=== PATIENT | male | born 1940 | race Caucasian/White ===

== ENCOUNTER 2018-04-07 22:09 | Inpatient (IN) | payer MEDICARE ==
[~2018-04-07] VITALS: Ht 177.8 cm; Wt 74.8 kg
[2018-04-07 23:15] VITALS: BP 153/96
[2018-04-08] MEDS ORDERED: MAG HYDROX/AL HYDROX/SIMETH 30 ML UDC PO PRN
[2018-04-08] MEDS ORDERED: ACETAMINOPHEN 325 MG TABLET PO PRN
[2018-04-08] MEDS ORDERED: MAGNESIUM HYDROXIDE 30 ML UDC PO PRN
[2018-04-08] MEDS ORDERED: DIPH25TA27 PO (00:04)
[2018-04-08] MEDS ORDERED: NICOTINE PATCH (14MG) 14 MG PATCH.TD24 TD SCH (09:00)
[2018-04-08 10:13] LABS: BASOPHILS % (AUTO) 0.4 % (0.0-2.0); EOSINOPHILS % (AUTO) 1.8 % (0.0-6.0); HEMATOCRIT 26 % (39-51); HEMOGLOBIN 8.6 g/dL (13.5-17.5); LYMPHOCYTES # (AUTO) 0.6 /CMM (0.8-4.8); LYMPHOCYTES % (AUTO) 8.8 % (20.0-44.0); MEAN CORPUSCULAR HGB CONC 33 g/dl (31.0-36.0); MEAN CORPUSCULAR VOLUME 91 fL (80-96); MONOCYTES # (AUTO) 0.4 /CMM (0.1-1.30); MONOCYTES % (AUTO) 6.3 % (2.0-12.0); NEUTROPHILS # (AUTO) 5.2 /CMM (1.8-8.9); NEUTROPHILS % (AUTO) 82.7 % (43.0-81.0); PLATELET COUNT (AUTO) 257 /CMM (150-450); RED BLOOD CELL COUNT(AUTO) 2.88 MIL/uL (4.5-6.0); WHITE BLOOD COUNT (AUTO) 6.3 K/uL (4.3-11.0)
[2018-04-08 10:26] LABS: ALANINE AMINOTRANSFERASE 14 U/L (12-78); ALBUMIN 2.4 g/dL (3.4-5.0); ALKALINE PHOSPHATASE 64 U/L (46-116); ASPARTATE AMINOTRANSFERASE 22 U/L (15-37); BILIRUBIN,TOTAL 0.2 mg/dL (0.2-1.0); CALCIUM, SERUM 7.6 mg/dL (8.5-10.1); CARBON DIOXIDE 28 mmol/L (21-32); CHLORIDE 105 mmol/L (98-107); GLUCOSE 80 mg/dL (74-106); POTASSIUM 3.9 mmol/L (3.5-5.1); SODIUM SERUM 140 mmol/L (136-145); TOTAL PROTEIN, SERUM 5.5 g/dL (6.4-8.2); UREA NITROGEN, BLOOD 23 mg/dL (7-18)
[2018-04-08 10:28] LABS: CHOLESTEROL 171 mg/dL (<200); HDL CHOLESTEROL 64 mg/dL (40-60); LDL 104 mg/dL (0-99); TRIGLYCERIDES 57 mg/dL (30-150)
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
--- NOTE | 2018-04-08 13:25 | NUR ---
INITIAL DISCHARGE PLAN: Patient needs placement. SW will help form a safe and proper discharge in collaboration with MD.
[2018-04-08 16:00] VITALS: BP 129/87
--- NOTE | 2018-04-08 16:10 | NUR ---
SLADE received a phone call from MARVA Culp social work assistant [phone] requesting discharge information for pt. SLADE informed him that pt will be discharged to a SNF once stable for discharge.
[2018-04-08] MEDS: QUETIAPINE FUMARATE 25 MG TABLET PO SCH (16:44)
[2018-04-08 20:00] VITALS: BP 130/64
[2018-04-08] MEDS: MIRTAZAPINE 15 MG TABLET PO SCH (21:21)
[2018-04-08] MEDS: diphenhydrAMINE HCL 25 MG CAPSULE PO PRN (21:22)
[2018-04-09 06:48] LABS: APPEARANCE,URINE CLEAR (CLEAR); BILIRUBIN,URINE NEGATIVE (NEGATIVE); BLOOD, URINE NEGATIVE Ery/uL (NEGATIVE); COLOR,URINE YELLOW (YELLOW); KETONES,URINE TRACE (NEGATIVE); LEUKOCYTE ESTERASE ,URINE NEGATIVE (NEGATIVE); NITRITE, URINE NEGATIVE (NEGATIVE); PH,URINE 6.5 (5.0-8.0); PROTEIN,URINE TRACE mg/dl (NEGATIVE); UGLUCOSE NEGATIVE (NEGATIVE); UROBILINOGEN,URINE 0.2 EU/dL (0.2)
[2018-04-09 08:00] VITALS: BP 111/58
[2018-04-09 08:02] LABS: BACTERIA,URINE Rare /HPF (None Seen); RBC,URINE 0-2 /HPF (0-2); SQUAMOUS EPITHELIAL CELL,UR Rare /HPF (None Seen); WBC,URINE NONE SEEN /HPF (0-3)
[2018-04-09] MEDS: NICOTINE PATCH (7MG) 7 MG PATCH.TD24 TD SCH (08:30)
[2018-04-09] MEDS: QUETIAPINE FUMARATE 25 MG TABLET PO SCH ×2 (08:30→16:38)
[2018-04-09 16:00] VITALS: BP 116/67
[2018-04-09 20:00] VITALS: BP 109/51
[2018-04-09] MEDS: MIRTAZAPINE 15 MG TABLET PO SCH (22:11)
[2018-04-09] MEDS: diphenhydrAMINE HCL 25 MG CAPSULE PO PRN (22:15)
--- NOTE | 2018-04-09 22:39 | NUR ---
LATE ENTRY: DATE OF ADMISSION: 04/07/2018 AT 2315 PATIENT ADMITTED DIRECTLY FORM [facility] ON 5150 HOLD FOR GD. PATIENT ADMITTED DUE TO INCREASING CONFUSION, DEPRESSION AND UNABLE TO CARE FOR HIMSELF. HE WAS EVICTED FROM [place] DUE TO SMOKING. PATIENT WAS PLACED IN BED COMFORTABLY. PATIENT IS AWAKE, ALERT, ORIENTED X2, (NAME AND TIME). PATIENT SHOWS NO S/S OF ANY PAIN. RESPIRATION EVEN, BREATHING PATTERN NON-LABORED, NO APPARENT DISTRESS NOTED. SKIN IS DRY AND CLEAR, SCAB NOTED ON THE LEFT KNEE, PHOTO TAKEN. PATIENT IS AMBULATORY, STEADY GAIT. COOPERATIVE AND UNCOOPERATIVE, CONFUSED, INTERACTS WHEN ENGAGED, REFUSED TO SHOWER, UNKEMPT, DISHEVELED, MALODOROUS, POOR HYGIENE, NO RELATIVE GIVEN. NO KNOWN ALLERGY. BELONGINGS WERE INVENTORIED AND CHECKED FOR CONTRABAND. MED RECON DONE. BED LOCKED AND PLACED ON LOW POSITION FOR SAFETY. WILL CONTINUE TO MONITOR Q 15 MINS. FOR SAFETY.
[2018-04-10 07:11] LABS: BASOPHILS % (AUTO) 0.9 % (0.0-2.0); EOSINOPHILS % (AUTO) 3.9 % (0.0-6.0); HEMATOCRIT 25 % (39-51); HEMOGLOBIN 8.3 g/dL (13.5-17.5); LYMPHOCYTES # (AUTO) 1.1 /CMM (0.8-4.8); MEAN CORPUSCULAR HGB CONC 34 g/dl (31.0-36.0); MEAN CORPUSCULAR VOLUME 90 fL (80-96); MONOCYTES # (AUTO) 0.6 /CMM (0.1-1.30); MONOCYTES % (AUTO) 10.6 % (2.0-12.0); NEUTROPHILS # (AUTO) 3.6 /CMM (1.8-8.9); NEUTROPHILS % (AUTO) 64.6 % (43.0-81.0); PLATELET COUNT (AUTO) 232 /CMM (150-450); RED BLOOD CELL COUNT(AUTO) 2.73 MIL/uL (4.5-6.0); WHITE BLOOD COUNT (AUTO) 5.5 K/uL (4.3-11.0)
[2018-04-10 07:42] LABS: IRON, SERUM 22 ug/dl (50-175); TOTAL IRON BINDING CAPACITY 209 ug/dl (250-450)
[2018-04-10 08:00] VITALS: BP 115/69
[2018-04-10] MEDS: QUETIAPINE FUMARATE 25 MG TABLET PO SCH ×2 (08:29→17:05)
[2018-04-10] MEDS: NICOTINE PATCH (7MG) 7 MG PATCH.TD24 TD SCH (10:05)
[2018-04-10 16:00] VITALS: BP 115/58
[2018-04-10 20:00] VITALS: BP 122/80
[2018-04-10] MEDS: MIRTAZAPINE 15 MG TABLET PO SCH (21:11)
[2018-04-11 08:00] VITALS: BP 124/67
[2018-04-11] MEDS: NICOTINE PATCH (7MG) 7 MG PATCH.TD24 TD SCH (09:02)
[2018-04-11] MEDS: QUETIAPINE FUMARATE 25 MG TABLET PO SCH ×2 (09:02→16:24)
--- NOTE | 2018-04-11 11:54 | NUR ---
DR. RUSSO MADE AWARE OF THE RESULT OF THE CHEST X-RAY.
[2018-04-11] MEDS: FERROUS SULFATE (325 MG) 325 MG/TAB TABLET PO SCH ×2 (12:06→16:24)
--- NOTE | 2018-04-11 13:06 | NUR ---
SW met with MARVA Culp [employer] social worker [phone] and discussed pts discharge plan.
[2018-04-11] MEDS ORDERED: ALBUTEROL FS 2.5 MG/0.5 ML VIAL.NEB NEB PRN (13:30)
--- NOTE | 2018-04-11 14:27 | NUR ---
SLADE faxed SNF referral to CJ, facility coordinator at [facility] Address: [address] [place] [address] for review.
--- NOTE | 2018-04-11 15:41 | NUR ---
SW received a call from PERLITA, laboratory operations coordinator at [facility] Address: [address] [place] [address] stating pt has been accepted to their facility.
[2018-04-11 16:00] VITALS: BP 122/74
--- NOTE | 2018-04-11 17:43 | NUR ---
Pt. transferred to [facility] and and report given to
--- NOTE | 2018-04-11 17:51 | NUR ---
GPS/OF. PT RECEIVED A&0x2, CHATTING, CONFUSED BUT RESPONSIVE TO REDIRECTION. PT WITH 1:1. PT MADE COMFORTABLE. MATCHES CONFISCATED FROM PT. WILL CONTINUE POC.
--- NOTE | 2018-04-11 18:29 | NUR ---
GPS OVF. PT RESTING IN BED AFTER DINNER. PT PLEASANT, CONFUSED, MALODOROUS AND WANDERING BUT RESPONSIVE TO REDIRECTION AND RULE SETTING. PT TOLERATING ROOM AIR AND DENIES PAIN AT THIS TIME. PT WITH 1:1 FOR SAFETY. PT BED IN LOWEST LOCKED POSITION WITH HANDRIALSX2 AND CALL VAZQUEZ WITHIN REACH. WILL ENDORSE TO NIGHT NURSE AT BEDSIDE FOR LARISA.
--- NOTE | 2018-04-11 19:40 | NUR ---
GPS OVERFLOW RN NOTE: PATIENT RESTING IN BED, NO ACUTE DISTRESS NOTED. BREATHING EVEN AND UNLABORED, NO SOB NOTED. SITTER AT BEDSIDE. PATIENT CALM AND COOPERATIVE AT THIS TIME. BED LOCKED AND IN LOWEST POSITION, CALL LIGHT IN REACH. WILL CONTINUE TO MONITOR.
[2018-04-11 20:00] VITALS: BP 131/63
[2018-04-11 20:35] VITALS: BP 131/63
[2018-04-11] MEDS: MIRTAZAPINE 15 MG TABLET PO SCH (21:39)
[2018-04-11] MEDS: clonazePAM 0.5 MG TABLET PO PRN (21:39)
--- NOTE | 2018-04-11 21:45 | NUR ---
GPS OVERFLOW RN NOTE: PATIENT MOVED TO ROOM 206-2, WITH ALL BELONGINGS, SITTER AT BEDSIDE. BED LOCKED AND IN LOWEST POSITION, CALL LIGHT IN REACH. WILL CONTINUE TO MONITOR.
[2018-04-11] MEDS: TEMAZEPAM 7.5 MG CAPSULE PO PRN (22:22)
--- NOTE | 2018-04-12 06:25 | NUR ---
GPS OVERFLOW RN NOTE: PATIENT RESTING IN BED, NO ACUTE DISTRESS NOTED. BREATHING EVEN AND UNLABORED, NO SOB NOTED. SITTER AT BEDSIDE. PATIENT CALM AND COOPERATIVE AT THIS TIME. BED LOCKED AND IN LOWEST POSITION, CALL LIGHT IN REACH. WILL ENDORSE TO DAY NURSE TO CONTINUE WITH PLAN OF CARE.
[2018-04-12] MEDS: clonazePAM 0.5 MG TABLET PO PRN (07:34)
--- NOTE | 2018-04-12 08:00 | NUR ---
MS RN NOTES PATIENT IN BED RESTING NO SOB OR ACUTE DISTRESS NOTED. PATIENT ALERT, ORIENTED X1 CONFUSED. PATIENT GPS OVERFLOW WITH SITTER. BED IN LOW LOCKED POSITION. CALL LIGHT WITHIN REACH . WILL CONTINUE TO MONITOR.
[2018-04-12] MEDS: NICOTINE PATCH (7MG) 7 MG PATCH.TD24 TD SCH (08:54)
[2018-04-12] MEDS: QUETIAPINE FUMARATE 25 MG TABLET PO SCH ×2 (08:55→16:21)
[2018-04-12] MEDS: FERROUS SULFATE (325 MG) 325 MG/TAB TABLET PO SCH ×2 (08:55→16:21)
[2018-04-12 08:58] VITALS: BP 130/69
[2018-04-12] MEDS: CYANOCOBALAMIN 1,000 MCG/ML VIAL IM SCH (10:00)
--- NOTE | 2018-04-12 18:31 | NUR ---
MS RN NOTES PATIENT IN BED RESTING ALL DUE MEDICATIONS ADMINISTERED. ALL NEEDS MET WILL ENDORSE CARE TO PM SHIFT.
--- NOTE | 2018-04-12 19:30 | NUR ---
MS/RN OPENING NOTES PT RESTING COMFORTABLY IN BED. CONFUSED. ON ROOM AIR, BREATHING EVEN AND UNLABORED. DENIES PAIN. NO S/S OF SOB OR ACUTE DISTRESS. NO IV ACCESS PER HOSPITAL PROTOCOL. SITTER AT BEDSIDE. BED IN LOW/LOCKED POSITION WITH CALL LIGHT IN REACH, BILATERAL SIDE RAILS UP X2. WILL CONTINUE TO MONITOR
[2018-04-12 20:00] VITALS: BP 124/63
[2018-04-12] MEDS: MIRTAZAPINE 15 MG TABLET PO SCH (21:10)
--- NOTE | 2018-04-12 22:49 | NUR ---
RN NOTES PT MOVED TO GPS VIA WHEELCHAIR TO ROOM 220B IN STABLE CONDITION. ALL BELONGINGS AND CHART SENT WITH PT. REPORT GIVEN TO VELMA FITZGERALD FOR CONTINUITY OF CARE
--- NOTE | 2018-04-12 23:00 | NUR ---
RN NOTES Patient came to unit from GPS overflow via wheelchair, alert, oriented x 1. Patient is confused and paranoid. Refused vital signs to be taken. Patient is wearing a jacket and when asked to be checked for contraband, patient refused. Security personnel were called in. Patient then agreed to have his belongings and jacket checked. Will continue to monitor behavior
[2018-04-12] MEDS: TEMAZEPAM 7.5 MG CAPSULE PO PRN (23:15)
[2018-04-13 08:00] VITALS: BP 119/65
[2018-04-13] MEDS: FERROUS SULFATE (325 MG) 325 MG/TAB TABLET PO SCH ×2 (08:16→16:49)
[2018-04-13] MEDS: QUETIAPINE FUMARATE 25 MG TABLET PO SCH ×2 (08:17→16:49)
[2018-04-13] MEDS: NICOTINE PATCH (7MG) 7 MG PATCH.TD24 TD SCH (08:18)
[2018-04-13] MEDS: CYANOCOBALAMIN 1,000 MCG/ML VIAL IM SCH (08:18)
[2018-04-13 16:00] VITALS: BP 127/90
[2018-04-13 20:36] VITALS: BP 109/51
[2018-04-13] MEDS: MIRTAZAPINE 15 MG TABLET PO SCH (21:07)
[2018-04-14 08:00] VITALS: BP 146/89
[2018-04-14] MEDS: CYANOCOBALAMIN 1,000 MCG/ML VIAL IM SCH (09:00)
[2018-04-14] MEDS: NICOTINE PATCH (7MG) 7 MG PATCH.TD24 TD SCH ×2 (09:00→09:10)
[2018-04-14] MEDS: FERROUS SULFATE (325 MG) 325 MG/TAB TABLET PO SCH ×2 (09:10→16:29)
[2018-04-14] MEDS: QUETIAPINE FUMARATE 25 MG TABLET PO SCH ×2 (09:10→16:29)
--- NOTE | 2018-04-14 09:16 | NUR ---
GPS/RN-NOTES PATIENT SELECTIVE WITH MEDICATIONS,REFUSE VIT. B12 IM AND NICOTINE PATCH. STATED" MY BIRTHDAY TODAY I WANT TO HAVE FREE OF MINE". OFFERED X3
[2018-04-14 16:07] VITALS: BP 123/60
--- NOTE | 2018-04-14 16:19 | NUR ---
SLADE contacted Mona Telles [facility] geriatric social worker [phone] and left a voicemail informing him pt is discharging tomorrow 04/15/18 at 12:30pm to [facility].
--- NOTE | 2018-04-14 19:30 | NUR ---
GPS RN NOTE, RECEIVED PATIENT AWAKE AND IN BED NO S/S OR COMPLAINTS OF PAIN AT THIS TIME. PATIENT IS DISPLAYING NO S/S OF APPARENT DISTRESS AT THIS TIME. PATIENT BREATHING IS UNLABORED WITH EQUAL RISE AND FALL OF THE CHEST. PATIENT IS ALERT AND ORIENTED X 2 ON ROOM AIR WITH A SPO2 0F 95%. PATIENT IS MED SELECTIVE, DISORGANIZED, CONFUSED AT TIMES AND NEEDS REORIENTATION. PATIENT DENIES SUICIDE AND HOMICIDAL IDEATIONS AT THIS TIME. PATIENT ASSISTED WITH TURNING AND REPOSITIONING Q2HR AND PRN FOR COMFORT AND CIRCULATION. PATIENT HAS NO NEEDS AT THIS TIME. PATIENT EDUCATED ON THE USE OF THE CALL VAZQUEZ. PATIENT BED SIDE RAILS ARE UP X 2 FOR SAFETY, BED IS LOCKED AND LOW. WILL CONTINUE TO MONITOR AND MAINTAIN SAFETY Q15 MIN WITH THE HELP OF STAFF.
[2018-04-14 20:00] VITALS: BP 129/63
[2018-04-14] MEDS: MIRTAZAPINE 15 MG TABLET PO SCH (21:55)
[2018-04-15 08:00] VITALS: BP 135/72
[2018-04-15] MEDS: NICOTINE PATCH (7MG) 7 MG PATCH.TD24 TD SCH (08:00)
[2018-04-15] MEDS: FERROUS SULFATE (325 MG) 325 MG/TAB TABLET PO SCH (08:00)
[2018-04-15] MEDS: QUETIAPINE FUMARATE 25 MG TABLET PO SCH (08:00)
[2018-04-15] MEDS: CYANOCOBALAMIN 1,000 MCG/ML VIAL IM SCH (08:55)
--- NOTE | 2018-04-15 10:03 | NUR ---
DR. LANIER GAVE AN ORDER TO D/C HOLD AND D/C TO [facility], TO CONTINUE SAME MEDS INCLUDING PRN AND TO FOLLOW UP WITH PSYCH AND MEDICAL DOCTORS. DR. RANGEL MADE AWARE OF THE DISCHARGE AND RECONCILED MEDS.
--- NOTE | 2018-04-15 13:28 | NUR ---
DISCHARGE NOTE: Pt was discharged at 12:30pm via [facility] ambulance trip#[id number] to [facility] Address: [address] [place] [address] . Pt has no family to notify. Pts mood was euthymic with congruent affect, pt denied visual/auditory hallucinations and denied suicidal/homicidal ideations. Pt will be under the care of Psychiatrist: Dr. Flowers Address: [address] [place] [address] and [facility] Advanced Operator: Dr Best Address: [address] [address] [phone]. The multidisciplinary exitcare form was done, printed, signed, and given to the patient.
--- NOTE | 2018-04-15 13:30 | NUR ---
GPS HAND MODEL NOTES: PATIENT DISCHARGED TO [facility] LOCATED AT [address] [place] [address], [address]. PHONE [phone]. PATIENT DISCHARGED BY MEDICAL DR. RANGEL AND PSYCH AND DR. HASSAN. PATIENT DENIES ANY SUICIDAL IDEATION OR HOMICIDAL IDEATIONS THIS TIME, PATIENT IS STABLE FOR DISCHARGE. DISCHARGE INSTRUCTIONS, EXIT CARE AND PRESCRIPTIONS ALL MADE AVAILABLE IN THE PACKET. PATIENT BELONGINGS INCLUDING MONEY WITH THE AMOUNT $6,[phone] COUNTED IN FRONT OF PATIENT AND WITNESSED, PATIENT'S PASSPORT ALSO GIVEN BACK TO HIM. PATIENT WILL BE UNDER THE CARE OF DR. LANIER AND DR. HAIRSTON FOR PSYCH AND MEDICAL WHILE IN [facility]. REPORT GIVEN TO LORRAINE MARAVILLA. PATIENT LEFT THE UNIT IN STABLE CONDITION.
== END 2018-04-15 13:10 | DRG 885 ==
LOC: GPS 22:09 → GPSOV2 04-11 17:39 → GPS 04-12 22:52
PROVIDERS: ADMIT Psychiatry & Neurology Psychiatry; ATTEND Psychiatry & Neurology Psychosomatic Medicine
DX: F33.3 Major depressive disorder, recurrent, severe with psychotic symptoms (principal); G93.40 Encephalopathy, unspecified; F23 Brief psychotic disorder; E44.0 Moderate protein-calorie malnutrition; F41.9 Anxiety disorder, unspecified; F03.90 Unspecified dementia, unspecified severity, without behavioral disturbance, psychotic disturbance, mood disturbance, and anxiety; D64.9 Anemia, unspecified; Z68.23 Body mass index [BMI] 23.0-23.9, adult; R79.89 Other specified abnormal findings of blood chemistry; G47.9 Sleep disorder, unspecified; Z59.0 Homelessness; F17.210 Nicotine dependence, cigarettes, uncomplicated; E88.09 Other disorders of plasma-protein metabolism, not elsewhere classified
CPT/HCPCS: 36415; 70450-TC; 71045-TC; 80053-TC; 80061-TC; 81000-TC; 82728-TC; 83540-TC; 84443-TC; 85025-TC; 87081-TC; J3420; Q0163

== ENCOUNTER 2020-01-01 16:16 | Inpatient (IN) | payer MEDICARE, OTHER ==
[~2020-01-01] VITALS: Ht 177.8 cm; Wt 71.2 kg
[~2020-01-01 16:16] MED LIST: DIPH25TA27 PO
--- NOTE | 2020-01-01 16:45 | NUR ---
AYUSH FROM [facility] TO ER BED 12. CONFUSED. NOT IN RESP DISTRESS. AMBULATORY. SENT FOR PSYCHIATRIC EVAL AND MEDICAL CLEARANCE. ACCORDING TO INTAKE REPORT, PT REFFERED TO DR. CASTILLO FOR SUICIDAL IDEATION - WANT TO BE HALLED BUT DOES NOT HAVE ANY SPECIFIC PLAN. UPON ASSESSMENT, PT IS NOTED CONFUSED. UPON ASKING IF HE WANT TO HURT HIMSELF, PT ANSWERED "NO". WAS A T THE BEDSIDE FOR EVAL. ORDERS RECEIVED NOTED AND CARRIED OUT
--- NOTE | 2020-01-01 17:17 | NUR ---
PT WALKING AROUND THE ER AND TRIED TO GET OUT. ASKED TO GO BACK TO BED BUT HE GOT AGITATED AND POSTURED READY TO HIT STAFF. PT PLACED BACK TO BED. 1:1 SITTER AT BEDSIDE TO REDIRECT PT.
--- NOTE | 2020-01-01 17:25 | NUR ---
LAB AT BEDSIDE FOR BLOOD DRAW
[2020-01-01 17:36] LABS: BASOPHILS % (AUTO) 0.5 % (0.0-2.0); EOSINOPHILS % (AUTO) 3.6 % (0.0-6.0); HEMATOCRIT 41 % (39-51); HEMOGLOBIN 13.7 g/dL (13.5-17.5); LYMPHOCYTES # (AUTO) 1.5 /CMM (0.8-4.8); LYMPHOCYTES % (AUTO) 22.7 % (20.0-44.0); MEAN CORPUSCULAR HGB CONC 33 g/dl (31.0-36.0); MEAN CORPUSCULAR VOLUME 89 fL (80-96); MONOCYTES # (AUTO) 0.7 /CMM (0.1-1.30); NEUTROPHILS # (AUTO) 4.2 /CMM (1.8-8.9); NEUTROPHILS % (AUTO) 63.2 % (43.0-81.0); PLATELET COUNT (AUTO) 192 /CMM (150-450); RED BLOOD CELL COUNT(AUTO) 4.64 MIL/uL (4.5-6.0); WHITE BLOOD COUNT (AUTO) 6.6 K/uL (4.3-11.0)
[2020-01-01] MEDS ORDERED: NA P133E RC (17:41)
[2020-01-01] MEDS ORDERED: FERR325T23 PO (17:41)
[2020-01-01] MEDS ORDERED: LEVA0.6320 IH (17:41)
[2020-01-01] MEDS ORDERED: PANT40TA49 PO (17:41)
[2020-01-01] MEDS ORDERED: MULT-754 PO (17:41)
[2020-01-01] MEDS ORDERED: GABA100C PO (17:41)
[2020-01-01] MEDS ORDERED: ACET-73 PO (17:41)
[2020-01-01] MEDS ORDERED: QUET25TA PO (17:41)
[2020-01-01] MEDS ORDERED: MAGN30OR PO (17:41)
[2020-01-01] MEDS ORDERED: DOCU100C36 PO (17:41)
[2020-01-01] MEDS ORDERED: MAGN24002 PO (17:41)
[2020-01-01] MEDS ORDERED: ESCI5TAB PO (17:41)
[2020-01-01] MEDS ORDERED: CYAN-51 PO (17:41)
[2020-01-01] MEDS ORDERED: BISA10SU61 RC (17:41)
[2020-01-01] MEDS ORDERED: MAG30ORA14 (17:41)
[2020-01-01] MEDS ORDERED: TYL2T PO (17:41)
[2020-01-01] MEDS ORDERED: SENN-18 PO (17:41)
[2020-01-01 17:44] LABS: CALCIUM, SERUM 8.5 mg/dL (8.5-10.1); CARBON DIOXIDE 26 mmol/L (21-32); CHLORIDE 104 mmol/L (98-107); GLUCOSE 96 mg/dL (74-106); POTASSIUM 4.4 mmol/L (3.5-5.1); SODIUM SERUM 139 mmol/L (136-145); UREA NITROGEN, BLOOD 19 mg/dL (7-18)
[2020-01-01 17:50] LABS: ALANINE AMINOTRANSFERASE 13 U/L (12-78); ALBUMIN 3.5 g/dL (3.4-5.0); ALCOHOL, BLOOD < 3 mg/dL (0-0); ALKALINE PHOSPHATASE 79 U/L (46-116); ASPARTATE AMINOTRANSFERASE 11 U/L (15-37); BILIRUBIN,DIRECT 0.1 mg/dL (0.0-0.2); BILIRUBIN,TOTAL 0.4 mg/dL (0.2-1.0); TOTAL PROTEIN, SERUM 7.6 g/dL (6.4-8.2)
[2020-01-01 17:51] LABS: ACETAMINOPHEN 0 ug/ml (10-30)
--- NOTE | 2020-01-01 18:04 | NUR ---
CALLED LINO CARREON FOR CRISIS EVAL.
[2020-01-01 18:15] LABS: BILIRUBIN,URINE NEGATIVE (NEGATIVE); BLOOD, URINE TRACE-INTA Ery/uL (NEGATIVE); COLOR,URINE YELLOW (YELLOW); LEUKOCYTE ESTERASE ,URINE NEGATIVE (NEGATIVE); NITRITE, URINE NEGATIVE (NEGATIVE); PROTEIN,URINE NEGATIVE (NEGATIVE); UGLUCOSE NEGATIVE (NEGATIVE); UROBILINOGEN,URINE 0.2 EU/dL (0.2)
[2020-01-01 18:47] LABS: BACTERIA,URINE None seen /HPF (None Seen); SQUAMOUS EPITHELIAL CELL,UR 0-2 /HPF (None Seen); WBC,URINE 0-2 /HPF (0-3)
--- NOTE | 2020-01-01 19:45 | NUR ---
JURGENID SWABBED, SENT TO LAB.
--- NOTE | 2020-01-01 19:49 | NUR ---
PER RN DIETITIAN TEACHING PT WILL BE GOING TO 214-A PENDING COVID RESULTS.
--- NOTE | 2020-01-01 20:05 | NUR ---
REPORT GIVEN TO VELMA ATKINSON FOR LARISA
[2020-01-01] MEDS ORDERED: LORAZEPAM 0.5 MG TABLET PO PRN (21:30)
[2020-01-01] MEDS ORDERED: BLOOD SUGAR DIAGNOSTIC 1 EACH STRIP IN ONE (21:30)
[2020-01-01] MEDS ORDERED: MAGNESIUM HYDROXIDE 30 ML UDC PO PRN (21:30)
[2020-01-01] MEDS ORDERED: MAG HYDROX/AL HYDROX/SIMETH 30 ML UDC PO PRN (21:30)
[2020-01-01] MEDS ORDERED: ACETAMINOPHEN 325 MG TABLET PO PRN (21:30)
[2020-01-01 21:49] VITALS: BP 155/99
[2020-01-01] MEDS: TEMAZEPAM 7.5 MG CAPSULE PO PRN (21:54)
[2020-01-01] MEDS ORDERED: IPRATROPIUM BROMIDE INH (22:11)
[2020-01-01] MEDS ORDERED: BISACODYL SUPP (10 MG) 10 MG/SUPP.RECT SUPP.RECT RC PRN (23:00)
[2020-01-01] MEDS ORDERED: NA PHOS,M-B/NA PHOS,DI-BA 1 EA ENEMA RC PRN (23:00)
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
--- NOTE | 2020-01-01 23:52 | NUR ---
GPS RN NOTE: INSOMNIA PT ASKED FOR SLEEPING PILL, RESTORIL PRN WAS GIVEN TO THE PT AT 2154, INSOMNIA CORRECTED, WILL CONTINUE TO MONITOR Q15MIN FOR SAFETY AND BEHAVIOR.
--- NOTE | 2020-01-02 06:07 | NUR ---
GPS RN NOTE SPOKE TO AMILCAR PETERS @ PTS FACILITY REGARDING THE PT FLU SHOT AND PNA VACCINATION, SAID WE WOULD HAVE TO CALL ANYTIME AFTER 8AM TO SPEAK TO MEDICAL RECORDS TO CLARIFY IF PT RECEIVED THE VACCINATIONS. WILL PASS IT ON TO MORNING SHIFT TO FOLLOW UP.
[2020-01-02] MEDS: PANTOPRAZOLE 40 MG TABLET.DR PO SCH (07:11)
[2020-01-02 07:26] LABS: CREATININE 0.9 mg/dL (0.6-1.3)
[2020-01-02 07:31] LABS: HDL CHOLESTEROL 53 mg/dL (40-60); LDL 122 mg/dL (0-99); TRIGLYCERIDES 63 mg/dL (30-150)
[2020-01-02 07:57] LABS: CHOLESTEROL 188 mg/dL (<200)
[2020-01-02 08:00] VITALS: BP 146/91
[2020-01-02] MEDS: GABAPENTIN 100 MG CAPSULE PO SCH ×3 (09:00→17:50)
[2020-01-02] MEDS: MULTIVITAMINS,THERAGRAN 1 UDTAB TABLET PO SCH (09:44)
[2020-01-02] MEDS: FERROUS SULFATE (325 MG) 325 MG/TAB TABLET PO SCH (09:44)
[2020-01-02] MEDS: CYANOCOBALAMIN 500 MCG TABLET PO SCH (09:44)
[2020-01-02] MEDS: DOCUSATE SODIUM 100 MG CAPSULE PO SCH ×2 (09:44→17:50)
--- NOTE | 2020-01-02 10:25 | NUR ---
SW Family Contact: Pt does not have any supportive contact at this moment.
--- NOTE | 2020-01-02 10:25 | NUR ---
SLADE Initial Discharge Plan: Pt currently resides at [facility] [address] [place] [id number]; ([phone]). This sports writer contacted Ale Rodriguez to see if pt is welcomed back upon dc. Per Ale, she will contact this sports writer. Pt does not have any supportive contact at this moment. This sports writer will work with the MD and treatment team to help coordinate proper discharge.
--- NOTE | 2020-01-02 10:31 | NUR ---
SLADE Coordination of Care: Ale Rodriguez contacted this expert medical writer ([phone]) who stated they will accept pt back upon dc.
--- NOTE | 2020-01-02 11:43 | NUR ---
WOUND CARE CONSULT: PT REFUSED SKIN ASSESSMENT. PT NOTED TO BE AMBULATORY. REVIEWED CHART AND PHOTOS WHICH INDICATE REDNESS/RASH TO GROIN/PERINEAL AREA, PRESENT ON ADMISSION. RECOMMENDATIONS MADE FOR SKIN PROTECTION. DISCUSSED WITH NURSING STAFF. WILL SEE PRN. PANIAGUA IN AGREEMENT WITH PLAN OF CARE.
[2020-01-02] MEDS ORDERED: risperiDONE-M 0.5 MG TAB.RAPDIS PO PRN (12:30)
[2020-01-02 16:00] VITALS: BP 136/95
--- NOTE | 2020-01-02 17:30 | NUR ---
RELOCATED TO [facility] RM.220-1.CONFUSED AND WANDERS ABOUT UNIT.
[2020-01-02] MEDS: CLOTRIMAZOLE 1% 15 GM TUBE TP SCH (17:59)
--- NOTE | 2020-01-02 19:27 | NUR ---
HAD CAT SCAN PER ORDERS.
[2020-01-02 20:17] VITALS: BP 146/86
[2020-01-02] MEDS: TEMAZEPAM 7.5 MG CAPSULE PO PRN (21:11)
[2020-01-02] MEDS: SENNOSIDES 8.6 MG TABLET PO SCH (21:11)
[2020-01-03 08:00] VITALS: BP 127/82
[2020-01-03] MEDS: MULTIVITAMINS,THERAGRAN 1 UDTAB TABLET PO SCH (09:04)
[2020-01-03] MEDS: GABAPENTIN 100 MG CAPSULE PO SCH ×3 (09:04→16:44)
[2020-01-03] MEDS: PANTOPRAZOLE 40 MG TABLET.DR PO SCH (09:04)
[2020-01-03] MEDS: FERROUS SULFATE (325 MG) 325 MG/TAB TABLET PO SCH (09:04)
[2020-01-03] MEDS: DOCUSATE SODIUM 100 MG CAPSULE PO SCH ×2 (09:04→16:44)
[2020-01-03] MEDS: CYANOCOBALAMIN 500 MCG TABLET PO SCH (09:04)
[2020-01-03] MEDS: CLOTRIMAZOLE 1% 15 GM TUBE TP SCH (09:21)
--- NOTE | 2020-01-03 09:45 | NUR ---
WOUND CARE CONSULT: PT SEEN FOR SKIN ASSESSMENT. NO REDNESS NOTED TO BUTTOCKS OR PERINEUM AT THIS TIME. PT NOTED TO HAVE VERY DRY SKIN AND VERY LONG CURLING TOENAILS, PRESENT ON ADMISSION. RECOMMEND DPM CONSULT. DR ESCOBAR NOTIFIED OF CONSULT REQUEST. RECOMMENDATIONS MADE FOR SKIN PROTECTION. DISCUSSED WITH NURSING STAFF. PT IS AMBULATORY ANDCONTINENT AT THIS TIME. WILL SEE PRN. IN AGREEMENT WITH PLAN OF CARE.
[2020-01-03] MEDS ORDERED: Z GUARD REMEDY 2 OZ OINT TP PRN (10:00)
--- NOTE | 2020-01-03 14:12 | NUR ---
PT AGITATED AT THIS TIME. VS WNL, ATIVAN 0.25MG PO Q6HR PRN FOR ANXIETY/AGITATION ADMINISTERED PER ORDER AT THIS TIME. WILL CONTINUE TO MONITOR
[2020-01-03] MEDS: risperiDONE-M 0.5 MG TAB.RAPDIS PO SCH ×2 (14:56→21:09)
[2020-01-03] MEDS: VITAMINS A AND D 56.7 GM TUBE TP SCH (15:01)
--- NOTE | 2020-01-03 15:56 | NUR ---
Individual Intervention: This newspaper writer met with pt for individual counseling. Pt appeared alert and oriented to self only. Pt stated he is no longer feeling suicidal, he stated he has "bad thoughts, but would not attempt to hurt himself". SW asked what kind of bad thoughts, pt refused to elaborate. Pt stated he "hears and sees people". This newspaper writer asked if pt is safe. Pt stated "yes". This newspaper writer actively listened and provided support.
[2020-01-03 16:00] VITALS: BP 127/87
--- NOTE | 2020-01-03 18:07 | NUR ---
GPS RN NOTES PT AWAKE IN BED AT THIS. PT REMAINED STABLE THROUGHOUT SHIFT. PT KEPT CLEAN AND DRY. ALL CARE, NEEDS, MEDICATIONS AND TREATMENT ADMINISTERED ANTICIPATED PER ORDER. SAFETY PRECAUTIONS IN PLACE AND MAINTAINED AT ALL TIMES. BED IN LOWEST LOCKED POSITION, HOB ELEVATED, SIDE RAILS UP X 2, CALL LIGHT WITHIN REACH.
[2020-01-03 19:58] VITALS: BP 129/88
[2020-01-03] MEDS: DIVALPROEX SODIUM 125 MG CAP.SPRINK PO SCH (21:08)
[2020-01-03] MEDS: SENNOSIDES 8.6 MG TABLET PO SCH (21:09)
--- NOTE | 2020-01-04 06:36 | NUR ---
GPS RN NOTES: PT. RESTING IN HIS ROOM, PT.REMAINED STABLE THROUGHOUT SHIFT, NO S/S OF DISTRESS NOTED , ALL CARE NEEDS MET ANTICIPATED. MED COMPLIANT ,PT. BEHAVIOR ,PARANOID EASILY AGITATED, NEEDS FREQUENTLY REDIRECTIONS ,WILL CONTINUE TO MONITOR FOR SAFETY BEHAVIOR, AND ENDORSE TO AM SHIFT FOR CONTINUITY OF CARE.
[2020-01-04 08:00] VITALS: BP 141/83
[2020-01-04] MEDS: DIVALPROEX SODIUM 125 MG CAP.SPRINK PO SCH ×2 (08:41→20:50)
[2020-01-04] MEDS: FERROUS SULFATE (325 MG) 325 MG/TAB TABLET PO SCH (08:41)
[2020-01-04] MEDS: DOCUSATE SODIUM 100 MG CAPSULE PO SCH ×2 (08:41→16:24)
[2020-01-04] MEDS: GABAPENTIN 100 MG CAPSULE PO SCH ×3 (08:41→16:24)
[2020-01-04] MEDS: MULTIVITAMINS,THERAGRAN 1 UDTAB TABLET PO SCH (08:41)
[2020-01-04] MEDS: risperiDONE-M 0.5 MG TAB.RAPDIS PO SCH ×3 (08:42→20:50)
[2020-01-04] MEDS: CYANOCOBALAMIN 500 MCG TABLET PO SCH (08:42)
[2020-01-04] MEDS: PANTOPRAZOLE 40 MG TABLET.DR PO SCH (08:42)
[2020-01-04] MEDS: VITAMINS A AND D 56.7 GM TUBE TP SCH (08:52)
--- NOTE | 2020-01-04 10:46 | NUR ---
GPS/RN-NOTES OFFERED FLU VACCINE AND PNA VACCINE TO THE PATIENT BUT PATIENT REFUSED. EXPLAINED RISK AND BENEFITS BUT PATIENT STILL REFUSED. OFFERED X3.
[2020-01-04 16:00] VITALS: BP 126/76
[2020-01-04 20:54] VITALS: BP 130/78
[2020-01-04] MEDS: SENNOSIDES 8.6 MG TABLET PO SCH (21:33)
[2020-01-05] MEDS: PANTOPRAZOLE 40 MG TABLET.DR PO SCH (07:56)
[2020-01-05 08:00] VITALS: BP 131/78
[2020-01-05] MEDS: MULTIVITAMINS,THERAGRAN 1 UDTAB TABLET PO SCH (08:06)
[2020-01-05] MEDS: DIVALPROEX SODIUM 125 MG CAP.SPRINK PO SCH ×3 (08:06→17:42)
[2020-01-05] MEDS: risperiDONE-M 0.5 MG TAB.RAPDIS PO SCH ×2 (08:06→12:46)
[2020-01-05] MEDS: DOCUSATE SODIUM 100 MG CAPSULE PO SCH ×2 (08:06→16:15)
[2020-01-05] MEDS: FERROUS SULFATE (325 MG) 325 MG/TAB TABLET PO SCH (08:06)
[2020-01-05] MEDS: CYANOCOBALAMIN 500 MCG TABLET PO SCH (08:07)
[2020-01-05] MEDS: GABAPENTIN 100 MG CAPSULE PO SCH ×3 (08:07→17:42)
[2020-01-05] MEDS: VITAMINS A AND D 56.7 GM TUBE TP SCH (09:37)
[2020-01-05] MEDS ORDERED: risperiDONE-M 0.5 MG TAB.RAPDIS PO SCH (13:30)
[2020-01-05 16:00] VITALS: BP 143/92
[2020-01-05] MEDS: risperiDONE 1 MG TABLET PO SCH (20:26)
[2020-01-05 20:45] VITALS: BP 132/80
[2020-01-05] MEDS: SENNOSIDES 8.6 MG TABLET PO SCH (22:09)
[2020-01-06 08:00] VITALS: BP 148/89
[2020-01-06] MEDS: MULTIVITAMINS,THERAGRAN 1 UDTAB TABLET PO SCH (08:06)
[2020-01-06] MEDS: DOCUSATE SODIUM 100 MG CAPSULE PO SCH ×2 (08:06→16:28)
[2020-01-06] MEDS: GABAPENTIN 100 MG CAPSULE PO SCH ×3 (08:06→16:28)
[2020-01-06] MEDS: CYANOCOBALAMIN 500 MCG TABLET PO SCH (08:07)
[2020-01-06] MEDS: risperiDONE-M 0.5 MG TAB.RAPDIS PO SCH ×2 (08:07→12:22)
[2020-01-06] MEDS: FERROUS SULFATE (325 MG) 325 MG/TAB TABLET PO SCH (08:07)
[2020-01-06] MEDS: DIVALPROEX SODIUM 125 MG CAP.SPRINK PO SCH ×3 (08:08→16:28)
[2020-01-06] MEDS: PANTOPRAZOLE 40 MG TABLET.DR PO SCH (08:13)
[2020-01-06] MEDS: VITAMINS A AND D 56.7 GM TUBE TP SCH (08:15)
--- NOTE | 2020-01-06 09:00 | NUR ---
RN NOTE- PT ALERT DISORGANIZED, CONFUSED MED COMPLIANT, PO INTAKE GOOD NO BEHAVIORAL ISSUES.
[2020-01-06 16:00] VITALS: BP 129/68
[2020-01-06] MEDS: risperiDONE 1 MG TABLET PO SCH (20:05)
[2020-01-06] MEDS: SENNOSIDES 8.6 MG TABLET PO SCH (21:17)
--- NOTE | 2020-01-06 21:20 | NUR ---
RN NOTES PATIENT REFUSED SCHEDULED SENNOSIDE DESPITE EDUCATION OF MEDICATION. WILL CONTINUE TO MONITOR.
[2020-01-07] MEDS: risperiDONE-M 0.5 MG TAB.RAPDIS PO SCH ×2 (07:59→13:24)
[2020-01-07] MEDS: PANTOPRAZOLE 40 MG TABLET.DR PO SCH (07:59)
[2020-01-07 08:00] VITALS: BP 148/88
[2020-01-07] MEDS: CYANOCOBALAMIN 500 MCG TABLET PO SCH (08:31)
[2020-01-07] MEDS: FERROUS SULFATE (325 MG) 325 MG/TAB TABLET PO SCH (08:31)
[2020-01-07] MEDS: DIVALPROEX SODIUM 125 MG CAP.SPRINK PO SCH ×3 (08:31→17:52)
[2020-01-07] MEDS: DOCUSATE SODIUM 100 MG CAPSULE PO SCH ×2 (08:31→17:52)
[2020-01-07] MEDS: MULTIVITAMINS,THERAGRAN 1 UDTAB TABLET PO SCH (08:31)
[2020-01-07] MEDS: GABAPENTIN 100 MG CAPSULE PO SCH ×3 (09:10→17:52)
[2020-01-07] MEDS: VITAMINS A AND D 56.7 GM TUBE TP SCH (09:10)
[2020-01-07 16:00] VITALS: BP 153/88
[2020-01-07 19:59] VITALS: BP 146/88
--- NOTE | 2020-01-07 20:00 | NUR ---
GPS-RN NOTE: PATIENT REFUSED WEEKLY SKIN ASSESSMENT.
[2020-01-07] MEDS: risperiDONE 1 MG TABLET PO SCH (20:21)
[2020-01-07] MEDS: SENNOSIDES 8.6 MG TABLET PO SCH (21:00)
[2020-01-07] MEDS: TEMAZEPAM 7.5 MG CAPSULE PO PRN (21:52)
--- NOTE | 2020-01-07 21:52 | NUR ---
GPS-RN NOTE: INSOMNIA PATIENT C/O INABILITY TO SLEEP. ADMINISTERED RESTORIL 7.5MG PO ORDERED. WILL CONTINUE TO MONITOR FOR PATIENT'S SAFETY.
--- NOTE | 2020-01-08 06:07 | NUR ---
GPS-RN NOTE: PATIENT AGREED TO DO WEEKLY SKIN ASSESSMENT. PICTURES PLACED IN THE CHART.
[2020-01-08 08:00] VITALS: BP 127/77
[2020-01-08] MEDS: DOCUSATE SODIUM 100 MG CAPSULE PO SCH ×2 (08:05→17:15)
[2020-01-08] MEDS: risperiDONE-M 0.5 MG TAB.RAPDIS PO SCH ×4 (08:05→17:15)
[2020-01-08] MEDS: PANTOPRAZOLE 40 MG TABLET.DR PO SCH (08:06)
[2020-01-08] MEDS: CYANOCOBALAMIN 500 MCG TABLET PO SCH (08:06)
[2020-01-08] MEDS: MULTIVITAMINS,THERAGRAN 1 UDTAB TABLET PO SCH (08:06)
[2020-01-08] MEDS: GABAPENTIN 100 MG CAPSULE PO SCH ×3 (08:06→17:15)
[2020-01-08] MEDS: FERROUS SULFATE (325 MG) 325 MG/TAB TABLET PO SCH (08:20)
[2020-01-08] MEDS: DIVALPROEX SODIUM 125 MG CAP.SPRINK PO SCH ×3 (08:20→17:15)
[2020-01-08] MEDS: VITAMINS A AND D 56.7 GM TUBE TP SCH (08:56)
[2020-01-08 16:00] VITALS: BP 146/98
[2020-01-08 20:00] VITALS: BP 126/81
[2020-01-08] MEDS: risperiDONE 1 MG TABLET PO SCH (20:03)
[2020-01-08] MEDS: SENNOSIDES 8.6 MG TABLET PO SCH (21:10)
[2020-01-08] MEDS: DONEPEZIL 5 MG TABLET PO SCH (21:10)
[2020-01-09 07:28] LABS: BASOPHILS % (AUTO) 0.7 % (0.0-2.0); EOSINOPHILS % (AUTO) 4.2 % (0.0-6.0); HEMATOCRIT 38 % (39-51); HEMOGLOBIN 12.7 g/dL (13.5-17.5); LYMPHOCYTES % (AUTO) 20.5 % (20.0-44.0); MEAN CORPUSCULAR HGB CONC 33 g/dl (31.0-36.0); MEAN CORPUSCULAR VOLUME 89 fL (80-96); MONOCYTES # (AUTO) 0.4 /CMM (0.1-1.30); MONOCYTES % (AUTO) 8.9 % (2.0-12.0); NEUTROPHILS # (AUTO) 3.2 /CMM (1.8-8.9); NEUTROPHILS % (AUTO) 65.7 % (43.0-81.0); PLATELET COUNT (AUTO) 176 /CMM (150-450); RED BLOOD CELL COUNT(AUTO) 4.31 MIL/uL (4.5-6.0); WHITE BLOOD COUNT (AUTO) 4.9 K/uL (4.3-11.0)
[2020-01-09 07:55] LABS: ALBUMIN 2.9 g/dL (3.4-5.0); BILIRUBIN,TOTAL 0.5 mg/dL (0.2-1.0); CALCIUM, SERUM 8.1 mg/dL (8.5-10.1); CREATININE 1.1 mg/dL (0.6-1.3); MAGNESIUM 2.2 mg/dL (1.8-2.4); POTASSIUM 3.8 mmol/L (3.5-5.1); TOTAL PROTEIN, SERUM 6.4 g/dL (6.4-8.2)
[2020-01-09] MEDS: PANTOPRAZOLE 40 MG TABLET.DR PO SCH (07:56)
[2020-01-09 08:00] VITALS: BP 134/88
[2020-01-09] MEDS: FERROUS SULFATE (325 MG) 325 MG/TAB TABLET PO SCH (08:13)
[2020-01-09] MEDS: DIVALPROEX SODIUM 125 MG CAP.SPRINK PO SCH ×2 (08:13→13:14)
[2020-01-09] MEDS: MULTIVITAMINS,THERAGRAN 1 UDTAB TABLET PO SCH (08:13)
[2020-01-09] MEDS: DOCUSATE SODIUM 100 MG CAPSULE PO SCH ×2 (08:13→16:58)
[2020-01-09] MEDS: CYANOCOBALAMIN 500 MCG TABLET PO SCH (08:13)
[2020-01-09] MEDS: risperiDONE-M 0.5 MG TAB.RAPDIS PO SCH ×3 (08:13→16:58)
[2020-01-09] MEDS: GABAPENTIN 100 MG CAPSULE PO SCH ×3 (08:14→16:58)
[2020-01-09] MEDS: VITAMINS A AND D 56.7 GM TUBE TP SCH (09:01)
[2020-01-09 16:00] VITALS: BP 113/72
[2020-01-09] MEDS: DIVALPROEX SODIUM 500 MG TABLET.DR PO SCH (16:58)
[2020-01-09] MEDS ORDERED: risperiDONE-M 0.5 MG TAB.RAPDIS PO SCH (21:00)
[2020-01-09] MEDS: DONEPEZIL 5 MG TABLET PO SCH (21:32)
[2020-01-09] MEDS: SENNOSIDES 8.6 MG TABLET PO SCH (21:32)
--- NOTE | 2020-01-09 21:33 | NUR ---
GPS RN NOTES: REFUSED MEDICATION PT REFUSED MEDICATION DUE (RISPERDAL, DONEPEZIL, SENOKOT). PT STATED, "DONT PUSH ME PLEASE. NOT NOW. TOMORROW?" EXPLAIN RISKS AND BENEFITS. PT STILL REFUSED X3. CONTINUE TO MONITOR.
[2020-01-09 21:35] VITALS: BP 151/90
[2020-01-10] MEDS: PANTOPRAZOLE 40 MG TABLET.DR PO SCH (07:36)
[2020-01-10 08:00] VITALS: BP 100/57
[2020-01-10] MEDS ORDERED: DIVALPROEX SODIUM 125 MG CAP.SPRINK PO SCH (08:00)
[2020-01-10] MEDS: DOCUSATE SODIUM 100 MG CAPSULE PO SCH ×2 (08:57→16:45)
[2020-01-10] MEDS: GABAPENTIN 100 MG CAPSULE PO SCH ×3 (08:58→16:44)
[2020-01-10] MEDS: CYANOCOBALAMIN 500 MCG TABLET PO SCH (08:58)
[2020-01-10] MEDS: risperiDONE-M 0.5 MG TAB.RAPDIS PO SCH ×3 (08:58→21:21)
[2020-01-10] MEDS: FERROUS SULFATE (325 MG) 325 MG/TAB TABLET PO SCH (08:58)
[2020-01-10] MEDS: MULTIVITAMINS,THERAGRAN 1 UDTAB TABLET PO SCH (08:58)
[2020-01-10] MEDS: VITAMINS A AND D 56.7 GM TUBE TP SCH (08:59)
[2020-01-10] MEDS: DIVALPROEX SODIUM 125 MG CAP.SPRINK PO SCH (12:45)
[2020-01-10 16:00] VITALS: BP 130/98
[2020-01-10] MEDS: DIVALPROEX SODIUM 500 MG TABLET.DR PO SCH (16:44)
[2020-01-10 21:05] VITALS: BP 129/72
[2020-01-10] MEDS: SENNOSIDES 8.6 MG TABLET PO SCH (21:21)
[2020-01-10] MEDS: DONEPEZIL 5 MG TABLET PO SCH (21:21)
--- NOTE | 2020-01-11 07:40 | NUR ---
GPS RN NOTE PATIENT IN BED RESTING COMFORTABLY. PATIENT IN NO ACUTE DISTRESS. NO SOB NOTED. PATIENT BREATHING IS EVEN AND UNLABORED. DENIES SI/HI. SAFETY PRECAUTIONS IN PLACE. WILL CONTINUE TO MONITOR.
[2020-01-11 08:00] VITALS: BP 133/79
[2020-01-11] MEDS: risperiDONE-M 0.5 MG TAB.RAPDIS PO SCH ×3 (08:40→21:09)
[2020-01-11] MEDS: MULTIVITAMINS,THERAGRAN 1 UDTAB TABLET PO SCH (08:40)
[2020-01-11] MEDS: DOCUSATE SODIUM 100 MG CAPSULE PO SCH ×2 (08:41→16:13)
[2020-01-11] MEDS: DIVALPROEX SODIUM 125 MG CAP.SPRINK PO SCH ×2 (08:41→12:13)
[2020-01-11] MEDS: PANTOPRAZOLE 40 MG TABLET.DR PO SCH (08:41)
[2020-01-11] MEDS: CYANOCOBALAMIN 500 MCG TABLET PO SCH (08:41)
[2020-01-11] MEDS: FERROUS SULFATE (325 MG) 325 MG/TAB TABLET PO SCH (08:41)
[2020-01-11] MEDS: GABAPENTIN 100 MG CAPSULE PO SCH ×3 (08:41→16:13)
[2020-01-11] MEDS: VITAMINS A AND D 56.7 GM TUBE TP SCH (08:43)
[2020-01-11 11:50] VITALS: BP 124/66
[2020-01-11 16:00] VITALS: BP 97/62
[2020-01-11] MEDS: DIVALPROEX SODIUM 500 MG TABLET.DR PO SCH (16:13)
--- NOTE | 2020-01-11 18:35 | NUR ---
GPS RN NOTE PATIENT IN BED RESTING COMFORTABLY. PATIENT IN NO ACUTE DISTRESS. NO SOB NOTED. PATIENT BREATHING IS EVEN AND UNLABORED. DENIES SI/HI. SAFETY PRECAUTIONS IN PLACE. SAFETY CHECKS PERFORMED. PATIENT KEPT CLEAN, DRY, AND COMFORTABLE THROUGHOUT SHIFT. EXPLAINED ALL DUE MEDS. WILL ENDORSE CARE TO PM SHIFT FOR LARISA.
[2020-01-11] MEDS: SENNOSIDES 8.6 MG TABLET PO SCH (21:02)
[2020-01-11] MEDS: DONEPEZIL 5 MG TABLET PO SCH (21:07)
[2020-01-12 08:00] VITALS: BP 139/88
[2020-01-12] MEDS: FERROUS SULFATE (325 MG) 325 MG/TAB TABLET PO SCH (08:15)
[2020-01-12] MEDS: GABAPENTIN 100 MG CAPSULE PO SCH ×3 (08:15→17:19)
[2020-01-12] MEDS: DIVALPROEX SODIUM 125 MG CAP.SPRINK PO SCH ×2 (08:15→12:18)
[2020-01-12] MEDS: DOCUSATE SODIUM 100 MG CAPSULE PO SCH ×2 (08:15→17:20)
[2020-01-12] MEDS: MULTIVITAMINS,THERAGRAN 1 UDTAB TABLET PO SCH (08:15)
[2020-01-12] MEDS: CYANOCOBALAMIN 500 MCG TABLET PO SCH (08:15)
[2020-01-12] MEDS: PANTOPRAZOLE 40 MG TABLET.DR PO SCH (08:15)
[2020-01-12] MEDS: risperiDONE-M 0.5 MG TAB.RAPDIS PO SCH ×3 (08:15→21:27)
[2020-01-12] MEDS: VITAMINS A AND D 56.7 GM TUBE TP SCH (08:16)
--- NOTE | 2020-01-12 09:00 | NUR ---
RN NOTE- PT CONFUSED WANDERING UNIT, REDIRECTED TO ROOM, PO INTAKE GOOD MED COMPLIANT NEEDS ATTENDED NO BEHAVIORAL ISSUES THUS FAR
[2020-01-12] MEDS: DIVALPROEX SODIUM 500 MG TABLET.DR PO SCH (17:20)
--- NOTE | 2020-01-12 19:30 | NUR ---
GPS RN NOTE RECEIVED PATIENT IN [facility]. PATIENT IN NO ACUTE DISTRESS NOTED. NO SINGS OF SOB OR RESPIRATORY DISTRESS NOTED. PATIENT BREATHING IS EVEN AND UNLABORED. PATIENT DENIES SI/HI AT THIS TIME. PATIENT IS CONFUSED AT THIS TIME AND YELLING AT STAFF. REORIENTED PATIENT. SAFETY MEASURES ARE IN PLACE. WILL CONTINUE TO MONITOR.
[2020-01-12 20:14] VITALS: BP 133/74
[2020-01-12] MEDS: DONEPEZIL 5 MG TABLET PO SCH (21:27)
[2020-01-12] MEDS: SENNOSIDES 8.6 MG TABLET PO SCH (21:27)
[2020-01-13 08:00] VITALS: BP 144/66
[2020-01-13] MEDS: CYANOCOBALAMIN 500 MCG TABLET PO SCH (08:23)
[2020-01-13] MEDS: FERROUS SULFATE (325 MG) 325 MG/TAB TABLET PO SCH (08:23)
[2020-01-13] MEDS: PANTOPRAZOLE 40 MG TABLET.DR PO SCH (08:23)
[2020-01-13] MEDS: MULTIVITAMINS,THERAGRAN 1 UDTAB TABLET PO SCH (08:23)
[2020-01-13] MEDS: DOCUSATE SODIUM 100 MG CAPSULE PO SCH ×2 (08:23→16:11)
[2020-01-13] MEDS: risperiDONE-M 0.5 MG TAB.RAPDIS PO SCH ×3 (08:24→22:02)
[2020-01-13] MEDS: GABAPENTIN 100 MG CAPSULE PO SCH ×3 (08:24→16:11)
[2020-01-13] MEDS: DIVALPROEX SODIUM 125 MG CAP.SPRINK PO SCH ×2 (08:25→12:06)
[2020-01-13] MEDS: VITAMINS A AND D 56.7 GM TUBE TP SCH (10:05)
[2020-01-13 11:41] LABS: BASOPHILS % (AUTO) 0.5 % (0.0-2.0); EOSINOPHILS % (AUTO) 3.6 % (0.0-6.0); HEMATOCRIT 37 % (39-51); HEMOGLOBIN 12.4 g/dL (13.5-17.5); LYMPHOCYTES % (AUTO) 22.5 % (20.0-44.0); MEAN CORPUSCULAR HGB CONC 34 g/dl (31.0-36.0); MEAN CORPUSCULAR VOLUME 89 fL (80-96); MONOCYTES # (AUTO) 0.5 /CMM (0.1-1.30); MONOCYTES % (AUTO) 11.7 % (2.0-12.0); NEUTROPHILS # (AUTO) 2.6 /CMM (1.8-8.9); NEUTROPHILS % (AUTO) 61.7 % (43.0-81.0); PLATELET COUNT (AUTO) 177 /CMM (150-450); RED BLOOD CELL COUNT(AUTO) 4.15 MIL/uL (4.5-6.0); WHITE BLOOD COUNT (AUTO) 4.3 K/uL (4.3-11.0)
[2020-01-13 11:57] LABS: ALBUMIN 2.8 g/dL (3.4-5.0); BILIRUBIN,TOTAL 0.3 mg/dL (0.2-1.0); CALCIUM, SERUM 7.9 mg/dL (8.5-10.1); POTASSIUM 3.7 mmol/L (3.5-5.1); TOTAL PROTEIN, SERUM 6.3 g/dL (6.4-8.2)
[2020-01-13 16:00] VITALS: BP 141/79
[2020-01-13] MEDS: DIVALPROEX SODIUM 500 MG TABLET.DR PO SCH (16:11)
[2020-01-13 19:49] VITALS: BP 128/77
[2020-01-13 20:36] VITALS: BP 128/77
[2020-01-13] MEDS: TEMAZEPAM 7.5 MG CAPSULE PO PRN (22:01)
[2020-01-13] MEDS: DONEPEZIL 5 MG TABLET PO SCH (22:02)
[2020-01-13] MEDS: SENNOSIDES 8.6 MG TABLET PO SCH (22:02)
--- NOTE | 2020-01-14 05:06 | NUR ---
ENDING NOTES:ENJOYS WATCHING THE TV IN THE TV ROOM. NOTED WHEN GIVEN HIS HS MEDS HE QUESTION ME IF THESE ARE THE SAME MEDS HE HAS BEEN GETTING?" REASSURES HIM THEY WERE AAND THEN HE WAS WILLING TO TAKE THE MEDIATION OFFERED. SWALLOWED W/O PROBLEMS WHEN HE WENT TO BED HE SLEPT SOUNDLY
[2020-01-14] MEDS: PANTOPRAZOLE 40 MG TABLET.DR PO SCH (07:48)
[2020-01-14 08:00] VITALS: BP 126/82
[2020-01-14] MEDS: MULTIVITAMINS,THERAGRAN 1 UDTAB TABLET PO SCH (08:24)
[2020-01-14] MEDS: CYANOCOBALAMIN 500 MCG TABLET PO SCH (08:24)
[2020-01-14] MEDS: FERROUS SULFATE (325 MG) 325 MG/TAB TABLET PO SCH (08:24)
[2020-01-14] MEDS: DIVALPROEX SODIUM 125 MG CAP.SPRINK PO SCH ×2 (08:25→12:09)
[2020-01-14] MEDS: GABAPENTIN 100 MG CAPSULE PO SCH ×3 (08:25→16:55)
[2020-01-14] MEDS: DOCUSATE SODIUM 100 MG CAPSULE PO SCH ×2 (08:25→16:54)
[2020-01-14] MEDS: risperiDONE-M 0.5 MG TAB.RAPDIS PO SCH ×3 (08:25→20:28)
[2020-01-14] MEDS: VITAMINS A AND D 56.7 GM TUBE TP SCH (08:29)
[2020-01-14 16:00] VITALS: BP 112/60
[2020-01-14] MEDS: DIVALPROEX SODIUM 500 MG TABLET.DR PO SCH (16:54)
[2020-01-14 20:00] VITALS: BP 129/87
[2020-01-14] MEDS: DONEPEZIL 5 MG TABLET PO SCH (21:00)
[2020-01-14] MEDS: SENNOSIDES 8.6 MG TABLET PO SCH (21:00)
--- NOTE | 2020-01-14 21:39 | NUR ---
GPS/RN OPENING NOTE Patient asleep in bed, A/O x2 calm and cooperative. No acute distress or SOB noted. Breathing even, unlabored. Patient denies pain, N/V/D. Patient is ambulatory with steady gait. Denies SI/HI. Will continue to monitor for safety and behavior. Bed in low position, wheels locked, side rails up x2.
[2020-01-15] MEDS: PANTOPRAZOLE 40 MG TABLET.DR PO SCH (06:30)
[2020-01-15] MEDS: GABAPENTIN 100 MG CAPSULE PO SCH ×5 (08:53→16:14)
[2020-01-15] MEDS: FERROUS SULFATE (325 MG) 325 MG/TAB TABLET PO SCH ×2 (08:54→10:21)
[2020-01-15] MEDS: DIVALPROEX SODIUM 125 MG CAP.SPRINK PO SCH ×4 (08:54→13:22)
[2020-01-15] MEDS: CYANOCOBALAMIN 500 MCG TABLET PO SCH ×2 (08:54→10:21)
[2020-01-15] MEDS: MULTIVITAMINS,THERAGRAN 1 UDTAB TABLET PO SCH ×2 (08:54→10:23)
[2020-01-15] MEDS: risperiDONE-M 0.5 MG TAB.RAPDIS PO SCH ×5 (08:54→21:06)
[2020-01-15] MEDS: DOCUSATE SODIUM 100 MG CAPSULE PO SCH ×3 (08:54→16:14)
--- NOTE | 2020-01-15 10:00 | NUR ---
GPS/ RN Open Notes PT A/O x1-2. WITH NO SIGNS OF DISTRESS. AMBULATES WITH A STEADY GAIT. PARTICIPATES IN THE ACTIVITY ROOM. WILL CONTINUE TO MONITOR FOR SAFETY AND BEHAVIOR.
[2020-01-15] MEDS: VITAMINS A AND D 56.7 GM TUBE TP SCH (10:33)
--- NOTE | 2020-01-15 10:56 | NUR ---
GAVE MEDICATIONS AFTER 9 AM D/T PATIENT BEING CONFUSED, WITH AN AGGRESSIVE BEHAVIOR AND REFUSING MEDICATIONS. WAITED FOR PATIENT TO CALM DOWN AND PATIENT TOOK HIS MEDICATIONS WITH NO COMPLICATIONS.
--- NOTE | 2020-01-15 15:11 | NUR ---
Group Note: SW encouraged the pt to attend group therapy on 01/15/20 at 2pm on the topic of suicidal ideation. Pt refused to attend the group and stated that he did not want to attend and wanted to remain in his bed.
[2020-01-15 16:00] VITALS: BP 129/86
[2020-01-15] MEDS: DIVALPROEX SODIUM 500 MG TABLET.DR PO SCH (16:14)
[2020-01-15 20:05] VITALS: BP 134/81
[2020-01-15] MEDS: SENNOSIDES 8.6 MG TABLET PO SCH (21:05)
[2020-01-15] MEDS: DONEPEZIL 5 MG TABLET PO SCH (21:06)
[2020-01-16] MEDS: PANTOPRAZOLE 40 MG TABLET.DR PO SCH (07:30)
[2020-01-16 08:00] VITALS: BP 150/99
[2020-01-16] MEDS: DIVALPROEX SODIUM 125 MG CAP.SPRINK PO SCH ×2 (08:00→12:26)
[2020-01-16] MEDS: risperiDONE-M 0.5 MG TAB.RAPDIS PO SCH ×3 (08:00→21:06)
[2020-01-16] MEDS: VITAMINS A AND D 56.7 GM TUBE TP SCH (09:00)
[2020-01-16] MEDS: MULTIVITAMINS,THERAGRAN 1 UDTAB TABLET PO SCH (09:08)
[2020-01-16] MEDS: CYANOCOBALAMIN 500 MCG TABLET PO SCH (09:08)
[2020-01-16] MEDS: FERROUS SULFATE (325 MG) 325 MG/TAB TABLET PO SCH (09:09)
[2020-01-16] MEDS: GABAPENTIN 100 MG CAPSULE PO SCH ×3 (09:09→17:26)
[2020-01-16] MEDS: DOCUSATE SODIUM 100 MG CAPSULE PO SCH ×2 (09:09→17:26)
--- NOTE | 2020-01-16 13:43 | NUR ---
SNF Contact: SLADE faxed updated notes to [facility] with attention to Kostas to the fax number: [phone].
[2020-01-16 16:00] VITALS: BP 126/72
[2020-01-16] MEDS: DIVALPROEX SODIUM 500 MG TABLET.DR PO SCH (17:26)
[2020-01-16 20:04] VITALS: BP 139/80
[2020-01-16] MEDS: DONEPEZIL 5 MG TABLET PO SCH (21:06)
[2020-01-16] MEDS: SENNOSIDES 8.6 MG TABLET PO SCH (21:07)
--- NOTE | 2020-01-17 | NUR ---
rn gps notes redirected patient to bed for sleep from dining room , patient is yelling and threatening to strike at staff and attempting to get out of bed fall risk precautions rendered. patient also stated he did not want to be in bed he wants to sit up. will attempt to redirect.
--- NOTE | 2020-01-17 02:00 | NUR ---
rn gps notes second attempt at redirecting patient to bed for sleep from dining room , patient is once again yelling and threatening to strike at staff, personal hygiene provided, gown and underwear changed. patient stated he did not want to be in bed he wants to sit up again. will continue to redirect.
--- NOTE | 2020-01-17 03:00 | NUR ---
rn gps notes patient prefers to sit up in gerichair. pt is sleeping.
--- NOTE | 2020-01-17 08:39 | NUR ---
Discharge Note: Pt was discharged to [facility] located at [address] [place] [address]; ([phone]). Pt was transported via [facility] at 1PM. There was no one to notify regarding this placement. Pt agreed to the placement. Upon discharge, pt appeared to be in a euthymic mood and presented with a calm affect. Pt denied suicidal and homicidal ideation and denied visual and auditory hallucinations. Pt appeared to be alert and oriented x4 (time, place, self and situation). Pt appeared to be well groomed and ambulatory with a steady gait. Pt will continue to follow up with psychiatrist, Dr. Griffin, located at [address] [address]; and director of instrumental music, Dr. Bharti Best, located at [address] [place] [address]; . Pt signed the Choice of Vendor form which was placed in the chart. The multidisciplinary exit care form was done, printed, signed, and given to the patient. Addendum: 01/17/20 at 1236 by SLADE UMANA Correction: Pt did not sign the Choice of Vendor form as he was asleep and refused to wake up when the SLADE called his name. SLADE and RN cosigned.
--- NOTE | 2020-01-17 09:00 | NUR ---
GPS/RN-NOTES [facility] TO CONTINUE ROUTINE MEDICATIONS AND PRN NOTED AND CARRIED OUT.
[2020-01-17] MEDS: GABAPENTIN 100 MG CAPSULE PO SCH ×2 (09:05→12:31)
[2020-01-17] MEDS: PANTOPRAZOLE 40 MG TABLET.DR PO SCH (09:05)
[2020-01-17] MEDS: CYANOCOBALAMIN 500 MCG TABLET PO SCH (09:05)
[2020-01-17] MEDS: DOCUSATE SODIUM 100 MG CAPSULE PO SCH (09:05)
[2020-01-17] MEDS: DIVALPROEX SODIUM 125 MG CAP.SPRINK PO SCH ×2 (09:06→12:13)
[2020-01-17] MEDS: FERROUS SULFATE (325 MG) 325 MG/TAB TABLET PO SCH (09:06)
[2020-01-17] MEDS: risperiDONE-M 0.5 MG TAB.RAPDIS PO SCH ×2 (09:06→12:12)
[2020-01-17] MEDS: MULTIVITAMINS,THERAGRAN 1 UDTAB TABLET PO SCH (09:06)
[2020-01-17] MEDS: VITAMINS A AND D 56.7 GM TUBE TP SCH (09:07)
--- NOTE | 2020-01-17 12:34 | NUR ---
Group Note: SW encouraged the pt to attend group therapy on 01/17/20 on treatment goals. Pt was present in his room and appeared to be asleep. Pt would not respond to the SW when she asked him to participate.
--- NOTE | 2020-01-17 13:08 | NUR ---
GPS CUTCH CLEANER NOTE: PATIENT DISCHARGE TODAY TO [facility] LOCATED AT [address] [place] [address] PT TRANSPORTED [facility] , NO FAMILY TO REPORT . PT A/OX1, CONFUSED , DISORGANIZED , RESTLESS AT TIMES , COMPLIANT WITH MEDICATIONS, EATING 100%, AMBULATORY WITH ASSIST, NO SOB NOTED PT COOPERATIVE , NO S/S DISTRESS NOTED. PT DENIES SI/HI DENIES AVH, PATIENT REFUSED TO SIGN DISCHARGE PAPERS, REFUSED SKIN ASSESSMENT. OFFERED FLU AND PNEUMONIA VACCINE BUT PT REFUSED. PT GETS EASILY MAD, T.O. DR CASTILLO DISCHARGE PT TO SNF CONTINUE MEDICATIONS. PT BELONGINGS AND VALUABLES GIVEN TO PT EXIT CARE DONE PRINTED GIVEN TO PT. REPORT GIVEN TO RN IN FACILITY.
== END 2020-01-17 13:50 | DRG 885 ==
LOC: ER 16:28 → GPS 20:04
PROVIDERS: ADMIT Psychiatry & Neurology Psychosomatic Medicine; ATTEND Nurse Practitioner Acute Care
DX: F25.0 Schizoaffective disorder, bipolar type (principal); R45.851 Suicidal ideations; F03.91 Unspecified dementia, unspecified severity, with behavioral disturbance; D68.59 Other primary thrombophilia; Z59.0 Homelessness; Z79.51 Long term (current) use of inhaled steroids; Z79.899 Other long term (current) drug therapy; F29 Unspecified psychosis not due to a substance or known physiological condition; F32.9 Major depressive disorder, single episode, unspecified; F41.9 Anxiety disorder, unspecified; G47.00 Insomnia, unspecified; Z87.891 Personal history of nicotine dependence; Z74.09 Other reduced mobility; Z86.73 Personal history of transient ischemic attack (TIA), and cerebral infarction without residual deficits; M81.0 Age-related osteoporosis without current pathological fracture; M19.90 Unspecified osteoarthritis, unspecified site; E55.9 Vitamin D deficiency, unspecified; D64.9 Anemia, unspecified; E78.5 Hyperlipidemia, unspecified; J44.9 Chronic obstructive pulmonary disease, unspecified; R13.10 Dysphagia, unspecified; B35.1 Tinea unguium
CPT/HCPCS: 36415; 70450-TC; 80048-TC; 80053-TC; 80061-TC; 80076-TC; 80164-TC; 81000-TC; 82140-TC; 82565-TC; 82962-TC; 83735-TC; 84443-TC; 85025-TC; 87081-TC; G0480